=== PATIENT | male | born 1945 | race Caucasian/White ===

== ENCOUNTER → 2017-09-29 | Outpatient (REF) | payer MEDICARE, BC ==
[2017-05-06 08:50] VITALS: BMI 38.5
[~2017-09-29] MED LIST: ALB17R INH; ALE70 PO; ALP5 PO; ALPR-429 PO; ALPR-445 PO; ALPR-448 PO; AMLO-98 PO; ASCO-191 PO; ASCO-480 PO; ASPI-715 PO; ASPI81TA94 PO; Amoxicillin/Clavulanate K PO; CALC-635 PO; CHOL100059 PO; CYCL10TA29 PO; DISU250T5 PO; ERG400 PO; FISH1CAP15 PO; FLAX100027 PO; FLAX100053 PO; FLU15T TOP; FLUT16SP20 NS; GARL10005 PO; GLUC-198 PO; GLUC750C3 PO; IBAN150T6 PO; LEVO50TA86 PO; LIS10 PO; LISI-374 PO; LORA-629 PO; LORA10TA2 PO; LOSA50TA72 PO; LOTEMAX; MAGN200T6 PO; METO-259 PO; METO50TA19 PO; MORP-181 PO; NIAC500C17 PO; Naproxen PO; OMEG500C7 PO; OMEP-137 PO; OXYC-865 PO; OXYC20TA99 PO; OXYC5TAB38 PO; Oxycodone Hcl PO; PRED20TA6 PO; RANI-324 PO; SPIR25TA78 PO; VIT-7 PO; VITA150T2 PO
[2017-09-29 16:19] LABS: PLATELET COUNT, AUTOMATED 248 K/uL (150-450)
== END ==
PROVIDERS: ATTEND Physician Assistant
DX: R60.0 Localized edema (principal); M79.606 Pain in leg, unspecified
CPT/HCPCS: 82040; 82247; 82310; 82374; 82435; 82565; 82947; 84075; 84132; 84155; 84295; 84450; 84460; 84520; 85025; 85379

== ENCOUNTER → 2017-09-30 | Outpatient (CLI) | payer MEDICARE, BC ==
[2017-05-06 08:50] VITALS: BMI 38.5
--- NOTE | 2017-09-30 14:11 | RADIOLOGY IMAGING REPORT ---
FACILITY: [facility] - [place], [place] PATIENT NAME: Bogdan Oconnell : 1945 MR: [id number] V: [id number] EXAM DATE: ORDERING PHYSICIAN: STANLEY MCGREGOR TECHNOLOGIST: Location: [facility] Patient: Bogdan Oconnell : 1945 Visit/Account:[id number] Date of Sevice: 09/30/2017 EXAMINATION: VENOUS DOPP LOW RIGHT EXTREMIT COMPARISON: None Available HISTORY: Right lower extremity edema. FINDINGS: Standard right lower extremity Doppler ultrasound with color flow and spectral analysis is performed. The common femoral, femoral, and popliteal veins are widely patent and compress appropriately. The v isualized calf veins and the proximal greater saphenous vein are patent. No popliteal fluid collection. IMPRESSION: No right lower extremity deep venous thrombosis. Report Dictated By: Jordy Shook MD at 09/30/2017 2:04 PM Report E-Signed By: oJrdy Shook MD at 09/30/2017 2:07 PM WSN:[id number]
== END ==
LOC: US 11:23
PROVIDERS: ATTEND Physician Assistant
DX: R60.0 Localized edema (principal); R79.1 Abnormal coagulation profile

== ENCOUNTER → 2018-02-14 | Outpatient (CLI) | payer MEDICARE, BC ==
[2017-05-06 08:50] VITALS: BMI 38.5
[~2018-02-14] MED LIST changes: -RANI-324 PO; +RANI-366 PO
--- NOTE | 2018-02-14 17:20 | RADIOLOGY IMAGING REPORT ---
FACILITY: [facility] PATIENT NAME: Bogdan Oconnell : 1945 MR: [id number] V: [id number] EXAM DATE: ORDERING PHYSICIAN: HARSHAD CABA TECHNOLOGIST: Location: [facility] Patient: Bogdan Oconnell : 1945 Visit/Account:[id number] Date of Sevice: 02/14/2018 2 VIEWS CHEST INDICATION: Hypoxia. Edema. COMPARISON: 09/26/2015. FINDINGS: Cardiac silhouette is mildly enlarged. Central pulmonary vessels are prominent and hazy. Mediastinal silhouette is within normal limits. Mild increased interstitial opacities seen diffusely in the lungs without focal area of consolidation . Mild scarring seen in both lower lobes. There is no pneumothorax or pleural effusion. No nodule. Upper abdomen is unremarkable. No acute bony abnormality. IMPRESSION: 1. Mildly enlarged cardiac silhouette with mild edema. No focal infiltrate. Report Dictated By: Surjit Green at 02/14/2018 5:14 PM Report E-Signed By: Surjit Green at 02/14/2018 5:17 PM WSN:[id number]
--- NOTE | 2018-02-14 19:38 | RADIOLOGY IMAGING REPORT ---
FACILITY: [facility] [place] PATIENT NAME: Bogdan Oconnell : 1945 MR: [id number] V: [id number] EXAM DATE: ORDERING PHYSICIAN: HARSHAD CABA TECHNOLOGIST: Location: [facility] Patient: Bogdan Oconnell : 1945 Visit/Account:[id number] Date of Sevice: 02/14/2018 EXAMINATION: Bilateral lower extremity arterial duplex ultrasound HISTORY: Leg edema. Hypoxemia. Smoking history. COMPARISON: None. FINDINGS: Ultrasound evaluation of the bilateral lower extremity arteries was performed with grayscale imaging and color and Doppler spectral analysis. Right leg: The visualized right leg arteries are patent with normal velocities and triphasic waveforms throughou t the interrogated segments. No significant atherosclerotic plaque is visible on grayscale imaging. Peak systolic velocities (cm/s): Common femoral artery: 113 Profunda femoral artery: 119 Proximal SFA: 118 Mid SFA: 101 Distal SFA: 64 Proximal popliteal: 79 Distal popliteal: 80 Peroneal: 31 Proximal posterior tibial: 88 Mid posterior tibial: 64 Distal posterior tibial: 63 Anterior tibial: 65 Dorsalis pedis: 76 Left leg: The visualized left leg arteries are patent with normal velocities and triphasic waveforms throughout the interrogated segments. No significant atherosclerotic plaque is visible on grayscale imaging. Peak systolic velocities (cm/s): Common femoral artery: 92 Profunda femoral artery: 60 Proximal SFA: 77 Mid SFA: 98 Distal SFA: 82 Proximal popliteal: 53 Distal popliteal: 59 Peroneal: 38 Proximal posterior tibial: 29 Mid posterior tibial: 67 Distal posterior tibial: 62 Anterior tibial: 73 Dorsalis pedis: 49 IMPRESSION: Unremarkable bilateral lower extremity arterial ultrasound. No ultrasound evidence of si gnificant atherosclerotic disease. Visualized arterial segments are patent without evidence of occlus deanna disease or focal stenosis. Report Dictated By: London Donovan MD at 02/14/2018 7:29 PM Report E-Signed By: London Donovan MD at 02/14/2018 7:36 PM WSN:[id number]
== END ==
LOC: US 04:07
PROVIDERS: ATTEND Family Medicine
DX: I51.7 Cardiomegaly (principal); I31.3 Pericardial effusion (noninflammatory); I34.0 Nonrheumatic mitral (valve) insufficiency; I37.1 Nonrheumatic pulmonary valve insufficiency
CPT/HCPCS: 71046; 93306; 93925

== ENCOUNTER → 2018-06-20 | Outpatient (CLI) | payer MEDICARE, BC ==
[2017-05-06 08:50] VITALS: BMI 38.5
[~2018-06-20] MED LIST changes: -LOSA50TA72 PO; +LOSA50TA74 PO; +SPIR25TA80 PO
== END ==
LOC: RESP 20:05
PROVIDERS: ATTEND Family Medicine
DX: G47.33 Obstructive sleep apnea (adult) (pediatric) (principal); G47.61 Periodic limb movement disorder; G47.36 Sleep related hypoventilation in conditions classified elsewhere

== ENCOUNTER → 2018-07-18 | Outpatient (CLI) | payer MEDICARE, BC ==
[2017-05-06 08:50] VITALS: BMI 38.5
[~2018-07-18] MED LIST changes: -LOSA50TA74 PO; +LOSA50TA80 PO
== END ==
LOC: RESP 19:46
PROVIDERS: ATTEND Family Medicine
DX: G47.33 Obstructive sleep apnea (adult) (pediatric) (principal); G47.61 Periodic limb movement disorder; G47.36 Sleep related hypoventilation in conditions classified elsewhere

== ENCOUNTER → 2018-08-01 | Outpatient (REF) | payer MEDICARE, BC ==
[2017-05-06 08:50] VITALS: BMI 38.5
== END ==
LOC: ZZSENDIN 19:28
PROVIDERS: ATTEND Physician Assistant
DX: L03.116 Cellulitis of left lower limb (principal)
CPT/HCPCS: 87071

== ENCOUNTER → 2018-08-04 | Outpatient (CLI) | payer MEDICARE, BC ==
[2017-05-06 08:50] VITALS: BMI 38.5
--- NOTE | 2018-08-04 14:28 | RADIOLOGY IMAGING REPORT ---
FACILITY: [facility] [place] PATIENT NAME: Bogdan Oconnell : 1945 MR: [id number] V: [id number] EXAM DATE: ORDERING PHYSICIAN: KENDALL LUCAS TECHNOLOGIST: Location: [facility] [place] Patient: Bogdan Oconnell : 1945 Visit/Account:[id number] Date of Sevice: 08/04/2018 ABDOMEN PELVIS ESWL CYSTO W/O HISTORY: Kidney stones TECHNIQUE: Axial images acquired through the abdomen/pelvis. Coronal and sagittal reformatting also performed. No IV contrast administered.Dose Lowering Technique One of the following dose optimization techniques was utilized in the performance of this exam: Autom ated exposure control; adjustment of the mA and/or kV according to the patient's size; or use of an i terative reconstruction technique. Specific details can be referenced in the facility's radiology C T exam operational policy. COMPARISON: May 05, 2017 FINDINGS: Visualized lung bases: Linear scarring in the lung bases. Calcified granuloma in the right middle l obe . Coronary artery calcifications Hepatobiliary: Negative. Spleen: Negative. Adrenals: Negative. Pancreas: Negative. Kidneys ureters and bladder: There is a 5 mm calculus lower pole calyx of the right kidney. There is a 1 mm nonobstructing calculus upper pole the left kidney and two 1 to 2 mm nonobstructing calculi l ower pole the left kidney no evidence of hydronephrosis or hydroureter Genitalia: Negative. GI: Negative. Vessels/spaces/nodes: Atherosclerotic calcifications in the abdominal aorta and branch vessels Bones/soft tissues: There Is a periumbilical hernia containing fat and an additional small ventral he rnia just above the umbilicus in the midline containing fat. There are extensive spondylotic changes of the lumbar spine Additional findings: None pertinent. IMPRESSION: Nonobstructing calculi in both renal collecting systems without evidence of hydronephrosis or hydrour eter Small periumbilical hernia containing fat and an additional small ventral hernia just above the umbil icus in the midline also containing fat Report Dictated By: Ivory Keller MD at 08/04/2018 2:17 PM Report E-Signed By: Ivory Keller MD at 08/04/2018 2:24 PM WSN:[email or web address]
== END ==
LOC: CT 02:13
PROVIDERS: ATTEND Urology
DX: N20.0 Calculus of kidney (principal); K42.9 Umbilical hernia without obstruction or gangrene
CPT/HCPCS: 74176

== ENCOUNTER → 2018-09-15 | Outpatient (REF) | payer MEDICARE, BC ==
[2017-05-06 08:50] VITALS: BMI 38.5
[~2018-09-15] MED LIST changes: +AMOX1TAB9; +LEVO75TA73 PO
== END ==
LOC: ZZSENDIN 14:14
PROVIDERS: ATTEND Family Medicine
DX: L97.909 Non-pressure chronic ulcer of unspecified part of unspecified lower leg with unspecified severity (principal)
CPT/HCPCS: 87070

== ENCOUNTER 2018-09-17 16:14 | Inpatient (IN) | payer MEDICARE, BC ==
[2017-05-06 08:50] VITALS: Ht 167.6 cm; Wt 115.7 kg
[~2018-09-17] VITALS: Ht 167.6 cm; Wt 115.7 kg
[~2018-09-17 16:14] MED LIST changes: -AMOX1TAB9; -LEVO75TA73 PO
[2018-09-17] MEDS ORDERED: AMOX1TAB9 (16:25)
[2018-09-17] MEDS ORDERED: TIGECYCLINE 50 MG INJS 50 MG in NS(*) 0.9% 100 ML BAG 100 ML IVPB ONE (16:35)
--- NOTE | 2018-09-17 16:53 | ER Report ---
History and Physical Time Seen By MD: 16:30 Hx. of Stated Complaint: pt reports L lower leg wound since May. pt sent from [facility] for wound check HPI/ROS CHIEF COMPLAINT: Wound left leg HISTORY OF PRESENT ILLNESS: 72-year-old male comes emergency Department today sent here from outpatient wound care facility for evaluation of a wound to the left lateral aspect of his left leg lower extremity patient status got worse over the last 45 days been seen for the last 2 weeks been put on Augmentin for the last week with little to no benefit in fact he's noticed it's getting significantly worse. Patient states Pain just with sitting and then the redness and the warmth and erythema has increased significantly sent here for emergent evaluation patient denies any history of diabetes. REVIEW OF SYSTEMS: Respiratory: No cough, no dyspnea. Cardiovascular: No chest pain, no palpitations. Gastrointestinal: No vomiting, no abdominal pain. Musculoskeletal: No back pain. Remainder of the 14 system rev: Yes Allergies: Coded Allergies: Sulfa (Sulfonamide Antibiotics) (Verified Allergy, Unknown, 09/17/18) Home Meds Active Scripts Morphine Sulfate (MS CONTIN) 15 Mg Tablet.er, 15 MG PO BID for 10 Days, #20 TAB Prov:BENIGNO ARRIETA MD 05/07/17 Cyclobenzaprine Hcl (CYCLOBENZAPRINE HCL) 10 Mg Tablet, 10 MG PO TID for 10 Days, #30 TAB 0 Refills Prov:BENIGNO ARRIETA MD 05/07/17 Oxycodone Hcl/Acetaminophen (PERCOCET 5-325 MG TABLET) 1 Each Tablet, 1-2 EACH PO Q4-6H PRN for PAIN, #40 TAB Prov:BENIGNO ARRIETA MD 05/07/17 Spironolactone (SPIRONOLACTONE) 25 Mg Tablet, 1 TAB PO QDAY, #90 TAB 4 Refills Prov:MYNOR MARQUEZ MD 11/23/14 Losartan Potassium (LOSARTAN POTASSIUM) 50 Mg Tablet, 1 TAB PO QDAY, #90 TAB 3 Refills Prov:MYNOR MARQUEZ MD 06/08/14 Reported Medications Amoxicillin/Potassium Clav (AMOX TR-K CLV 875-125 MG TAB) 1 Each Tablet, BID 09/17/18 Disulfiram (DISULFIRAM) 250 Mg Tablet, 250 MG PO DAILY, #14 05/07/17 Levothyroxine Sodium (LEVOTHYROXINE SODIUM) 50 Mcg Tablet, 40 MCG PO QDAY, TAB 05/05/17 Metoprolol Succinate (METOPROLOL SUCCINATE) 50 Mg Tab.er.24h, 1 TAB PO QDAY, TAB 10/14/15 Alprazolam (XANAX) 0.5 Mg Tablet, 1 TAB PO DAILY, TAB TAKE IN THE MORNING 09/26/15 Vit A,C & E/Lutein/Minerals (OCUVITE TABLET) 1 Each Tablet, 1 TAB PO QDAY 08/18/14 Magnesium (MAGNESIUM) 200 Mg Tablet, 1 TAB PO QDAY 08/18/14 Fish Oil/Dha/Epa (FISH OIL 1,200 MG FISH OIL) 1 Each Capsule, 1 CAP PO QDAY, CAPSULE 08/18/14 Flaxseed Oil (FLAX OIL) 1,000 Mg Capsule, 2 CAP PO QDAY, CAPSULE 08/18/14 Garlic (GARLIC) 1,000 Mg Capsule, 1 CAP PO QDAY, CAPSULE 08/18/14 Glucosa Sykes 2KCL/Chondroitin Sykes (GLUCOSAMINE & CHONDROITIN CAP) 1 Each Capsule, 1 CAP PO BID, CAPSULE 08/18/14 Niacin (Inositol Niacinate) (NIACIN 500 MG CAPSULE) 500 Mg Capsule, 1 CAP PO QDAY, CAPSULE 08/18/14 Vitamin B Complex & Vit C No.4 (SUPER B COMPLEX) 150 Mg Tablet, 1 TAB PO QDAY 08/18/14 Loratadine (LORATADINE) 10 Mg Tablet, 10 MG PO DAILY PRN for ALLERGY SYMPTOMS 05/03/14 Omeprazole (OMEPRAZOLE) 20 Mg Tablet.dr, 20 MG PO QDAY TAKE ONE TABLET BY MOUTH ONCE A DAY 05/03/14 Aspirin (ASPIRIN) 81 Mg Tab.chew, 81 MG PO QDAY, TAB.CHEW TAKE 1 TABLET BY MOUTH EVERY DAY 05/03/14 Calcium Carbonate/Vitamin D3 (CALCIUM 600 + VIT D3 TABLET) 1 Each Tablet, 2 TAB PO DAILY 05/03/14 Cholecalciferol (Vitamin D3) (VITAMIN D3) 1,000 Unit Capsule, 1000 UNIT PO, CAPSULE 05/03/14 Reviewed Nurses Notes: Yes Old Medical Records Reviewed: Yes Hx Smoking: Yes (SMOKED 1/2 TO 2/3 PPD FOR 40 YEARS) Smoking Status: Former Smoker Exposure to Second Hand Smoke?: No Hx Substance Use Disorder: No Hx Alcohol Use: Yes Constitutional Vital Sign - Last 24 Hours 09/17/18 16:20 Temp 98.7 Pulse 100 Resp 18 B/P (MAP) 145/80 Pulse Ox 90 O2 Delivery Room Air Physical Exam General Appearance: The patient is alert, has no immediate need for airway protection and no current signs of toxicity. [ ] Eyes: Pupils equal and round no injection. Respiratory: Chest is non tender, lungs are clear to auscultation. Cardiac: regular rate and rhythm [ ] Gastrointestinal: Abdomen is soft and non tender, no masses, bowel sounds normal. Musculoskeletal: Neck: Neck is supple and non tender. Extremities have full range of motion and are non tender other than stated above Skin: A 3 x 4 cm open wound with serosanguineous drainage with a well demarcated warm erythematous area around it was some mild to moderate cellulitic changes neurovascularly intact tender to touch and palpation of the left lateral aspect of the left lower extremity [ ] DIFFERENTIAL DIAGNOSIS: After history and physical exam differential diagnosis was considered for cellulitis open wound Medical Decision Making Data Points Result Diagram: 09/17/18 1642 09/17/18 1642 Laboratory Hematology Test 09/17/18 16:42 Red Blood Count 4.76 M/uL (4.00-5.60) Mean Corpuscular Volume 89.1 fL (80.0-96.0) Mean Corpuscular Hemoglobin 29.8 pg (26.0-33.0) Mean Corpuscular Hemoglobin Concent 33.5 g/dL (32.0-36.0) Red Cell Distribution Width 17.1 % (11.5-14.5) Mean Platelet Volume 7.2 fL (7.2-11.1) Neutrophils (%) (Auto) 59.6 % (39.4-72.5) Lymphocytes (%) (Auto) 25.8 % (17.6-49.6) Monocytes (%) (Auto) 12.8 % (4.1-12.4) Eosinophils (%) (Auto) 1.1 % (0.4-6.7) Basophils (%) (Auto) 0.7 % (0.3-1.4) Nucleated RBC Relative Count (auto) 0.0 /100WBC Neutrophils # (Auto) 6.9 K/uL (2.0-7.4) Lymphocytes # (Auto) 3.0 K/uL (1.3-3.6) Monocytes # (Auto) 1.5 K/uL (0.3-1.0) Eosinophils # (Auto) 0.1 K/uL (0.0-0.5) Basophils # (Auto) 0.1 K/uL (0.0-0.1) Nucleated RBC Absolute Count (auto) 0.00 K/uL Sodium Level 133 mmol/L (137-145) Potassium Level 4.8 mmol/L (3.5-5.0) Chloride Level 100 mmol/L (98-107) Carbon Dioxide Level 25 mmol/L (22-30) Blood Urea Nitrogen 18 mg/dl (9-21) Creatinine 0.60 mg/dl (0.66-1.25) Glomerular Filtration Rate Calc > 60.0 Random Glucose 104 mg/dl (75-110) Lactate 1.5 mmol/L (0.7-2.1) Calcium Level 9.6 mg/dl (8.4-10.2) Total Bilirubin 0.4 mg/dl (0.2-1.3) Aspartate Amino Transf (AST/SGOT) 22 U/L (0-35) Alanine Aminotransferase (ALT/SGPT) 29 U/L (0-56) Alkaline Phosphatase 61 U/L (0-126) Total Protein 6.9 g/dl (6.3-8.2) Albumin 4.1 g/dl (3.5-5.0) Chemistry Test 09/17/18 16:42 White Blood Count 11.6 k/uL (4.5-11.0) Red Blood Count 4.76 M/uL (4.00-5.60) Hemoglobin 14.2 g/dL (14.0-18.0) Hematocrit 42.4 % (42.0-52.0) Mean Corpuscular Volume 89.1 fL (80.0-96.0) Mean Corpuscular Hemoglobin 29.8 pg (26.0-33.0) Mean Corpuscular Hemoglobin Concent 33.5 g/dL (32.0-36.0) Red Cell Distribution Width 17.1 % (11.5-14.5) Platelet Count 291 K/uL (150-450) Mean Platelet Volume 7.2 fL (7.2-11.1) Neutrophils (%) (Auto) 59.6 % (39.4-72.5) Lymphocytes (%) (Auto) 25.8 % (17.6-49.6) Monocytes (%) (Auto) 12.8 % (4.1-12.4) Eosinophils (%) (Auto) 1.1 % (0.4-6.7) Basophils (%) (Auto) 0.7 % (0.3-1.4) Nucleated RBC Relative Count (auto) 0.0 /100WBC Neutrophils # (Auto) 6.9 K/uL (2.0-7.4) Lymphocytes # (Auto) 3.0 K/uL (1.3-3.6) Monocytes # (Auto) 1.5 K/uL (0.3-1.0) Eosinophils # (Auto) 0.1 K/uL (0.0-0.5) Basophils # (Auto) 0.1 K/uL (0.0-0.1) Nucleated RBC Absolute Count (auto) 0.00 K/uL Glomerular Filtration Rate Calc > 60.0 Lactate 1.5 mmol/L (0.7-2.1) Calcium Level 9.6 mg/dl (8.4-10.2) Total Bilirubin 0.4 mg/dl (0.2-1.3) Aspartate Amino Transf (AST/SGOT) 22 U/L (0-35) Alanine Aminotransferase (ALT/SGPT) 29 U/L (0-56) Alkaline Phosphatase 61 U/L (0-126) Total Protein 6.9 g/dl (6.3-8.2) Albumin 4.1 g/dl (3.5-5.0) ED Course/Re-evaluation ED Course ED clinical course 72-year-old male comes in for wound check left lower extremity a large open wound that is failed outpatient management started him on Tygacil and cultures have been sent blood counts an elevated white count patient be admitted with wound care and consult Decision to Disposition Date: Sep 17, 2018 Decision to Disposition Time: 17:18 Depart Departure Latest Vital Signs Vital Signs Date Time Temp Pulse Resp B/P (MAP) Pulse Ox O2 Delivery O2 Flow Rate FiO2 09/17/18 16:20 98.7 100 18 145/80 90 Room Air Impression: Primary Impression: Open wound Condition: Improved Disposition: Admitted from ER Referrals: HARSHAD CABA DO (PCP) TREV COLEY MD Sep 17, 2018 16:53
[2018-09-17 17:05] LABS: PLATELET COUNT, AUTOMATED 291 K/uL (150-450)
[2018-09-17 18:18] VITALS: BP 125/106
[2018-09-17] MEDS ORDERED: FLUSH 10 ML SYR IVP PRN (18:55)
[2018-09-17] MEDS ORDERED: ALPRAZolam 0.25 MG TAB PO PRN ×2 (19:05→19:35)
--- NOTE | 2018-09-17 19:09 | RADIOLOGY IMAGING REPORT ---
FACILITY: [facility] PATIENT NAME: Bogdan Oconnell : 1945 MR: [id number] V: [id number] EXAM DATE: ORDERING PHYSICIAN: TREV COLEY TECHNOLOGIST: Location: [facility] Patient: Bogdan Oconnell : 1945 Visit/Account:[id number] Date of Sevice: 09/17/2018 EXAMINATION: ANKLE 2 VIEW LEFT HISTORY: osteo. Ankle oozing for 2 months. COMPARISON: None. FINDINGS: 2 views of the left ankle are obtained. Bones: The cortical margins of the bones are intact. Bone mineralization is within normal limits. Sm all plantar calcaneal enthesophyte. Joint spaces: Osteophytes in the midfoot. Hardware: None. Alignment: Normal. Soft tissues: Soft tissue swelling about the ankle. IMPRESSION: There is soft tissue swelling about the left ankle. No evidence of osteomyelitis. Report Dictated By: Yony Carballo MD at 09/17/2018 7:02 PM Report E-Signed By: Yony Carballo MD at 09/17/2018 7:05 PM WSN:[id number]
[2018-09-17] MEDS ORDERED: INSULIN HUM LISPRO 100 UN/ML 3 ML VIAL SUBQ PRN (19:10)
[2018-09-17] MEDS ORDERED: NS(*) 0.9% 250 ML BAG 250 ML ONE (19:25)
--- NOTE | 2018-09-17 19:28 | History & Physical ---
History of Present Illness Chief Complaint "Sore leg" History of Present Illness 72yo male with PMHx significant for type 2 DM, alcoholism, PRAVEEN. He reports a chronic wound on lateral aspect of left lower leg for the past 2-3 months. He has been following as an outpatient for wound care. He was recently started on oral Augmentin for a suspected cellulitis with the wound. He denies any current fevers or chills. He has noted some slowly increasing erythema in the area. He has also had some thin, reddish/clear drainage. He was referred to the [facility] ER for further evaluation. He was found to have an elevated WBC count. Final x-ray report is still pending at this time. He was recommended for admission. History Problems: (1) Bacterial pneumonia, unspecified Status: Resolved (2) Nontraumatic rupture of bicep tendon Status: Resolved (3) Osteopenia Status: Chronic (4) Edema Status: Chronic (5) Venous stasis dermatitis Status: Chronic (6) Chronic wound of extremity Status: Chronic (7) History of colon polyps Status: Chronic (8) Closed left humeral fracture Status: Resolved (9) COPD (chronic obstructive pulmonary disease) Status: Chronic (10) Alcohol abuse Status: Chronic (11) Essential hypertension Status: Chronic (12) Obstructive sleep apnea Status: Chronic (13) Hyperlipidemia Status: Chronic (14) Hypothyroidism Status: Chronic Home Meds Active Scripts Morphine Sulfate (MS CONTIN) 15 Mg Tablet.er, 15 MG PO BID for 10 Days, #20 TAB Prov:BENIGNO ARRIETA MD 05/07/17 Cyclobenzaprine Hcl (CYCLOBENZAPRINE HCL) 10 Mg Tablet, 10 MG PO TID for 10 Days, #30 TAB 0 Refills Prov:BENIGNO ARRIETA MD 05/07/17 Oxycodone Hcl/Acetaminophen (PERCOCET 5-325 MG TABLET) 1 Each Tablet, 1-2 EACH PO Q4-6H PRN for PAIN, #40 TAB Prov:BENIGNO ARRIETA MD 05/07/17 Spironolactone (SPIRONOLACTONE) 25 Mg Tablet, 1 TAB PO QDAY, #90 TAB 4 Refills Prov:MYNOR MARQUEZ MD 11/23/14 Losartan Potassium (LOSARTAN POTASSIUM) 50 Mg Tablet, 1 TAB PO QDAY, #90 TAB 3 Refills Prov:MYNOR MARQUEZ MD 06/08/14 Reported Medications Amoxicillin/Potassium Clav (AMOX TR-K CLV 875-125 MG TAB) 1 Each Tablet, BID 09/17/18 Disulfiram (DISULFIRAM) 250 Mg Tablet, 250 MG PO DAILY, #14 05/07/17 Levothyroxine Sodium (LEVOTHYROXINE SODIUM) 50 Mcg Tablet, 40 MCG PO QDAY, TAB 05/05/17 Metoprolol Succinate (METOPROLOL SUCCINATE) 50 Mg Tab.er.24h, 1 TAB PO QDAY, TAB 10/14/15 Alprazolam (XANAX) 0.5 Mg Tablet, 1 TAB PO DAILY, TAB TAKE IN THE MORNING 09/26/15 Vit A,C & E/Lutein/Minerals (OCUVITE TABLET) 1 Each Tablet, 1 TAB PO QDAY 08/18/14 Magnesium (MAGNESIUM) 200 Mg Tablet, 1 TAB PO QDAY 08/18/14 Fish Oil/Dha/Epa (FISH OIL 1,200 MG FISH OIL) 1 Each Capsule, 1 CAP PO QDAY, CAPSULE 08/18/14 Flaxseed Oil (FLAX OIL) 1,000 Mg Capsule, 2 CAP PO QDAY, CAPSULE 08/18/14 Garlic (GARLIC) 1,000 Mg Capsule, 1 CAP PO QDAY, CAPSULE 08/18/14 Glucosa Sykes 2KCL/Chondroitin Sykes (GLUCOSAMINE & CHONDROITIN CAP) 1 Each Capsule, 1 CAP PO BID, CAPSULE 08/18/14 Niacin (Inositol Niacinate) (NIACIN 500 MG CAPSULE) 500 Mg Capsule, 1 CAP PO QDAY, CAPSULE 08/18/14 Vitamin B Complex & Vit C No.4 (SUPER B COMPLEX) 150 Mg Tablet, 1 TAB PO QDAY 08/18/14 Loratadine (LORATADINE) 10 Mg Tablet, 10 MG PO DAILY PRN for ALLERGY SYMPTOMS 05/03/14 Omeprazole (OMEPRAZOLE) 20 Mg Tablet.dr, 20 MG PO QDAY TAKE ONE TABLET BY MOUTH ONCE A DAY 05/03/14 Aspirin (ASPIRIN) 81 Mg Tab.chew, 81 MG PO QDAY, TAB.CHEW TAKE 1 TABLET BY MOUTH EVERY DAY 05/03/14 Calcium Carbonate/Vitamin D3 (CALCIUM 600 + VIT D3 TABLET) 1 Each Tablet, 2 TAB PO DAILY 05/03/14 Cholecalciferol (Vitamin D3) (VITAMIN D3) 1,000 Unit Capsule, 1000 UNIT PO, CAPSULE 05/03/14 Allergies: Coded Allergies: Sulfa (Sulfonamide Antibiotics) (Verified Allergy, Unknown, 09/17/18) Patient History: FH: COPD (chronic obstructive pulmonary disease) MOTHER, , Age:68 FH: alcoholism FATHER, , Age:83 BROTHER OR SISTER (Brother), Age:68 Paternalgrandfather, , Age:58 FH: asthma MOTHER, , Age:68 FH: coronary artery disease FATHER, , Age:83 MOTHER, , Age:68 FH: obesity Paternal Gramdmother, , Age:75 FH: stomach cancer Maternal Grandmother, , Age:93 Hx Smoking: Yes (SMOKED 1/2 TO 2/3 PPD FOR 40 YEARS) Smoking Status: Former Smoker Exposure to Second Hand Smoke?: No Caffeine Intake: Coffee Caffeine/Cups Per Day: 2 1/2 CUPS COFFEE PER DAY. Hx Alcohol Use: Yes Alcohol Use: Currently Hx Substance Use Disorder: No Social Drug Use: Never Social Drugs: Marijuana Amount Of Social Drug/s Used: TRIED IT A COUPLE TIMES IN COLLEGE Review of Systems Constitutional: No Fever, No Chills, No Night Sweats Neurological: Weakness Eyes: No Vision Change, No Loss of Vision ENT: Hearing Loss Cardiovascular: No Chest Pain, No Palpitations Respiratory: No Shortness of Breath, No Cough Gastrointestinal: No Nausea, No Vomiting, No Diarrhea, No Hematemesis, No Hematochezia, No Melena, No Abdominal Pain Genitourinary: No Dysuria, No Hematuria Musculoskeletal: Pain, Impaired Mobility Exam Vital Signs Vital Signs Date Time Temp Pulse Resp B/P (MAP) Pulse Ox O2 Delivery O2 Flow Rate FiO2 09/17/18 18:18 99.2 98 20 125/106 (112) 89 Room Air General Appearance: Alert, Awake Neuro: No Gross deficits Eyes: PERRLA ENT: Oropharynx Clear, Other (dentures) Neck: Other (short/thick/difficult to assess for JVD) Cardiovascular: Regular Rate and Rhythm Respiratory: Clear to Auscultation GI: Abd Soft and Non-Tender (obese/BS present) : No CVA Tenderness Extremities: Warm, Perfused Integumentary: Other (large open area just proximal to left lateral malleolus/dark tissue at the base with some darkening of kenzie tissue at margins as well/mild surrounding erythema/minimal serous drainage) Psych: Alert & Oriented X3 Medical Decision Making Data Points Result Diagram: 09/17/18 1642 09/17/18 1642 Item Value Date Time Albumin 4.1 g/dl 09/17/18 1642 Total Protein 6.9 g/dl 09/17/18 1642 Alkaline Phosphatase 61 U/L 09/17/18 1642 Alanine Aminotransferase (ALT/SGPT) 29 U/L 09/17/18 1642 Aspartate Amino Transf (AST/SGOT) 22 U/L 09/17/18 1642 Total Bilirubin 0.4 mg/dl 09/17/18 1642 Calcium Level 9.6 mg/dl 09/17/18 1642 Assessment and Plan Problems: (1) Cellulitis Status: Acute Assessment & Plan: It appears he has some associated cellulitis with his left lower extremity wound/ulcer. Will admit for IV antibiotics (Primaxin and vancomycin) and wound care. It does appear he has some necrotic tissue and may need some debridement. May need to have surgery see as well. (2) Open wound Status: Chronic Assessment & Plan: Will have wound care see. May need general surgery to see as well. (3) Hypothyroidism Status: Chronic Assessment & Plan: Continue replacement therapy. Check TSH to see if appropriately replaced. (4) Obstructive sleep apnea Status: Chronic Assessment & Plan: Will check his recent sleep study and continue therapy. (5) Essential hypertension Status: Chronic Assessment & Plan: Continue metoprolol, losartan, spironolactone. Watch BPs and modify regimen as needed. (6) Alcohol abuse Status: Chronic Assessment & Plan: He continues to drink "some". Will watch with CIWA protocol. Treat as needed. Place on thiamine. Copies to: HARSHAD CABA DO ; Venous Thromboembolism Antithrombotics Is Pt On Any Antithrombotics?: Yes Exam Sepsis Risk: No Definite Risk JOSE BRUSH MD Sep 17, 2018 19:28
[2018-09-17] MEDS ORDERED: DIAZEPAM 10 MG TAB PO PRN ×2 (19:35)
[2018-09-17] MEDS: IMIPENEM/CILASTA(*) 500MG VIAL 500 MG in NS(*) 0.9% 100 ML BAG 100 ML IVPB SCH (19:38)
[2018-09-17] MEDS ORDERED: VANCOMYCIN(*) 1 GM VIAL 2 GM in NS(*) 0.9% 500 ML BAG 500 ML IVPB ONE (20:00)
[2018-09-17] MEDS: metFORMIN HCL XR 500 MG TABCR PO SCH (21:23)
[2018-09-18] MEDS: IMIPENEM/CILASTA(*) 500MG VIAL 500 MG in NS(*) 0.9% 100 ML BAG 100 ML IVPB SCH ×4 (01:56→18:38)
[2018-09-18 03:55] VITALS: BP 128/73
[2018-09-18 06:02] LABS: PLATELET COUNT, AUTOMATED 273 K/uL (150-450)
[2018-09-18] MEDS: LEVOTHYROXINE SOD 0.075 MG TAB PO SCH (06:09)
[2018-09-18 07:56] VITALS: BP 108/76
[2018-09-18] MEDS ORDERED: NS(*) 0.9% 250 ML BAG 250 ML ONE (08:26)
[2018-09-18] MEDS: VANCOMYCIN(*) 1 GM VIAL 1 GM, VANCOMYCIN HCL 0.750 GM VIAL 0.75 GM in NS(*) 0.9% 250 ML... IVPB SCH ×2 (08:33→20:24)
[2018-09-18] MEDS: THIAMINE HCL 100 MG TAB PO SCH (08:34)
[2018-09-18] MEDS: LOSARTAN POTASSIUM 50 MG TAB PO SCH (08:34)
[2018-09-18] MEDS: METOPROLOL SUCC XL 50 MG TABCR 50 MG TAB.ER.24H PO SCH (08:34)
[2018-09-18] MEDS: ASPIRIN 81 MG CHEW PO SCH (08:34)
[2018-09-18] MEDS: metFORMIN HCL XR 500 MG TABCR PO SCH ×2 (08:34→20:23)
[2018-09-18] MEDS: FOLIC ACID 1 MG TAB PO SCH (08:34)
[2018-09-18] MEDS: SPIRONOLACTONE 25 MG TAB PO SCH (08:34)
[2018-09-18] MEDS: FUROSEMIDE 20 MG TAB PO SCH (08:35)
[2018-09-18] MEDS: ENOXAPARIN 40 MG/0.4ML SYR SC SCH (08:35)
--- NOTE | 2018-09-18 09:58 | Medical Nutrition Therapy ---
Nutrition Anthropometrics Height (Inches): 66.00 Height (Calculated Centimeters: 167.496378 Weight (Pounds): 255 Weight (Calculated Kilograms): 115.666 BMI: 41.2 Romaine Nutrition Score: Excellent Romaine Nutrition Risk Score: 18 Dietary Referral Nutrition Risk Factors: Nutrition Risk Comment: wound since 04/01 Physical Findings Physical Appearance: Morbidly Obese 40+ Skin Appearance Skin Appearance: Edema Edema Location Modifier: Edema Location: Type of Edema: Degree of Edema: Gastrointestinal Symptoms GI Symtoms: Tube Present: Bowel Sounds: Recent Bowel Pattern: Stool Characteristics: Nutritional Diagnosis Nutritional Risk Acuity 2: Abcess/Non-Healing Wound Nutritional Risk Acuity 3: Alcohol abuse, Morbid Obesity Past Medical History: 05/06 Pt has hx of alcohol abuse, COPD, hyperlipidemia, PRAVEEN, HTN, and hypoxemia. Nutrition Diagnosis: Increased Nutrient Needs Nutrition Etiology: Physiological Causes Nutrition Problem/Etiology/Sym: Increased Nutrient Needs related to increased demand for nutrients secondary to wound healing and infection AEB low albumin status and high C-reactive protein indicating increased stress and increased metabolic needs. Adjusted Energy Requirement Re: 2140 ([place]- [place] adj for obestiy) Protein Requirement: 105 (1.5gm/kg IBW) Fluid Requirement: 2875 (25gm/kg) Diet Type: Diabetic Nutrition Intervention: Cont diet as ordered, Encourage intake Drug: Diuretics Nutrition Monitoring & Eval Nutrition Goals: Eat 75-100% Meal RD Patient Assessment Time: [address] Assessment Type: RD Assessment Patient Nutrition Acuity: 2-Moderate Follow Up Date: Sep 23, 2018 Nutritional Comment: 09/18 Pt admitted for cellulities with chronic wound. Pt has dx T2DM. Pt on both K+ sparing and depleting duiretic. K+ WNR at 4.5. Alb 3.6, CRP 5.5. BG 97-106. pt has hx of alcoholism. Pt on diabetic diet however no intake reported at this time. Will cont to monitor and encourage intake. MICHELLE GARCIA Sep 18, 2018 09:58
--- NOTE | 2018-09-18 10:39 | Hospitalist Progress Note ---
Subjective Progress Notes Subjective This patient was admitted for cellulitis of the left leg. He had no acute events overnight. Patient Complains of: Cardiovascular: No: Chest Pain Respiratory: No: Shortness of Breath Physical Exam Vital Signs Date Time Temp Pulse Resp B/P (MAP) Pulse Ox O2 Delivery O2 Flow Rate FiO2 09/18/18 07:56 96.7 76 18 108/76 (87) 94 Nasal Cannula 2.0 Intake and Output 09/18/18 07:00 Intake Total 210 ml Balance 210 ml IV Total 210 ml # Voids 6 Cardiovascular: Regular Rate and Rhythm Respiratory: Clear to Auscultation Integumentary: Other (Black eschar on left lower leg with minimal surrounding erythema.) Result Diagram: 09/18/1851009/18/18510 Assessment and Plan Problems: (1) Cellulitis Status: Acute Assessment & Plan: It appears he has some associated cellulitis with his left lower extremity wound/ulcer. He is currently on Primaxin and vancomycin. (2) Open wound Status: Chronic Assessment & Plan: A wound evaluation is pending. (3) Hypothyroidism Status: Chronic Assessment & Plan: He is on chronic treatment with Synthroid. A TSH is within normal limits. (4) Obstructive sleep apnea Status: Chronic Assessment & Plan: Will check his recent sleep study and continue therapy. (5) Essential hypertension Status: Chronic Assessment & Plan: He is on chronic treatment with metoprolol, losartan, spironolactone. (6) Alcohol abuse Status: Chronic Assessment & Plan: He is on CIWA protocol and thiamine replacement. Exam Sepsis Risk: No Definite Risk ALEX CHUNG DO Sep 18, 2018 10:39
[2018-09-18 11:30] VITALS: BP 110/66
[2018-09-18] MEDS: CALCIUM CARBONATE/VITAMIN D3 PO SCH ×2 (12:13→16:54)
--- NOTE | 2018-09-18 15:20 | NUR ---
Physical Therapy Impression PT wound eval completed with Girth measurements: R)ankle 27.5cm; R)calf 39cm; L)ankle 28.5cm; L)calf 38cm. RICO on R) 126/130= 0.97 which is within safe range for therapeutic compression to be applied for venous insufficiency. RICO on L) however was 175/128= 1.37 which indicates a need for further testing to include Toe/Brachial index and could also be a sign of vessel calcification in relation to DMII. In light of this, no compression will be applied to L) LE unless clear by vascular specialist. Non-excisional debridement completed with the use of tweezers to a depth of subcutaneous tissue in order to remove non-viable slough. Wound cleansed with sterile saline and hydrogel applied to soften dried wound base. This was then covered with silver calcium alginate to assist in autolytic debridement process and secured with silicone border 6x6 dressing. PT to inspect again on Saturday for further debridement. If pt is medically ready to discharge prior to that date, recommend follow up with out pt wound care at [facility] as before. Physical Therapy Goals Patient's Goals
[2018-09-18 16:12] VITALS: BP 113/55
[2018-09-18] MEDS ORDERED: LEVO75TA73 PO (17:24)
--- NOTE | 2018-09-18 17:25 | Pharmacy Note ---
Vancomycin Management Note Vanco Dosing Note Pharmacy Services Pharmacokinetic Dosing Consult, Vancomycin Pharmacy has been consulted for dosing and monitoring of vancomycin for PRIYA CARR 72YO M for A WOUND. Pertinent Past Medical History: DM TYPE 2, ALCOHOLISM Antibiotics prior to admission; AUGMENTIN PO 09/15/18, KEFLEX 07/2018 Additional Antimicrobials: VANCOMYCIN Start 09/17 TIGECYCLINE Start 09/17 X 1 DOSE IN ER PRIMAXIN Start 09/17 Patient Information: Height (cm): 167.64 Actual Body Weight (ABW): 115.67 KG Pertinent Lab Tests WHITE BLOOD COUNT 9.9 NEUTROPHILS * BLOOD UREA NITROGEN * SCR 0.6 VANCOMYCIN TROUGH ORDERED FOR 09/18 @1900 VANCOMYCIN RANDOM * Culture Results: BLOOD: PENDING URINE * SPUTUM * WOUND * Assessment: CrCl 125ML/MIN (CAPPED) Renal function is STABLE Vancomycin Monitoring Assessment Goal Vancomycin Trough Level: 15-20 Plan: 1) Vancomycin 25 mg/kg loading dose (based on ABW): 2000 mg IV x 1 09/17/18 AT 2000 2) Vancomycin maintenance dose (based on ABW): 1750MG Q12H STARTED 09/18/18 AT 0800 3) Vancomycin monitoring: VANCO TROUGH ORDERED FOR 09/18/18 @1900 BEFORE 2000 DOSE Pharmacy will continue to monitor daily and adjust regimen as appropriate. Thank you for the consult. DAVID MAZA Sep 18, 2018 17:25
[2018-09-18 19:00] VITALS: BP 122/74
[2018-09-18] MEDS: DOCUSATE SODIUM 100 MG CAP PO SCH (20:23)
[2018-09-18] MEDS: POLYETHYLENE GLYCOL 17 GM PKT PO SCH (20:23)
[2018-09-18 23:55] VITALS: BP 149/77
[2018-09-19] MEDS: IMIPENEM/CILASTA(*) 500MG VIAL 500 MG in NS(*) 0.9% 100 ML BAG 100 ML IVPB SCH ×4 (02:09→18:39)
[2018-09-19] MEDS: LEVOTHYROXINE SOD 0.075 MG TAB PO SCH (05:47)
[2018-09-19 06:46] VITALS: BP 152/86
[2018-09-19] MEDS: VANCOMYCIN(*) 1 GM VIAL 1 GM, VANCOMYCIN HCL 0.750 GM VIAL 0.75 GM in NS(*) 0.9% 250 ML... IVPB SCH ×3 (08:00→20:46)
[2018-09-19] MEDS: METOPROLOL SUCC XL 50 MG TABCR 50 MG TAB.ER.24H PO SCH (08:52)
[2018-09-19] MEDS: LOSARTAN POTASSIUM 50 MG TAB PO SCH (08:57)
[2018-09-19] MEDS: THIAMINE HCL 100 MG TAB PO SCH (08:58)
[2018-09-19] MEDS: ASPIRIN 81 MG CHEW PO SCH (08:58)
[2018-09-19] MEDS: DOCUSATE SODIUM 100 MG CAP PO SCH ×2 (08:58→20:09)
[2018-09-19] MEDS: FUROSEMIDE 20 MG TAB PO SCH (08:58)
[2018-09-19] MEDS: SPIRONOLACTONE 25 MG TAB PO SCH (08:58)
[2018-09-19] MEDS: FOLIC ACID 1 MG TAB PO SCH (08:58)
[2018-09-19] MEDS: POLYETHYLENE GLYCOL 17 GM PKT PO SCH (08:59)
[2018-09-19] MEDS: ENOXAPARIN 40 MG/0.4ML SYR SC SCH (09:00)
[2018-09-19] MEDS: metFORMIN HCL XR 500 MG TABCR PO SCH ×2 (09:12→20:09)
--- NOTE | 2018-09-19 11:25 | Hospitalist Progress Note ---
Subjective Progress Notes Subjective He was admitted with cellulitis. He reports some improvement in redness in this morning. Patient Complains of: Cardiovascular: No: Chest Pain Respiratory: No: Shortness of Breath Physical Exam Vital Signs Date Time Temp Pulse Resp B/P (MAP) Pulse Ox O2 Delivery O2 Flow Rate FiO2 09/19/18 07:30 89 Room Air 09/19/18 06:46 98.1 86 22 152/86 (108) 2.0 Intake and Output 09/19/18 07:00 Intake Total 1530 ml Balance 1530 ml Intake Oral 1200 ml IV Total 330 ml # Voids 13 General Appearance: Alert, Awake, No Acute Distress, Afebrile Neuro: No Gross deficits Cardiovascular: Regular Rate and Rhythm Respiratory: No Respiratory Distress, Clear to Auscultation Extremities: Warm, Pulses (3+left lower extremity), Perfused, Edema (2+pitting edema to left lower extremity) Psych: Alert & Oriented X3, Appropriate Mood & Affect Result Diagram: 09/18/1851009/18/18510 Assessment and Plan Problems: (1) Cellulitis Status: Acute Assessment & Plan: It appears he has some associated cellulitis with his left lower extremity wound/ulcer. He is currently on Primaxin and vancomycin. (2) Open wound Status: Chronic Assessment & Plan: A wound evaluation is pending. (3) Hypothyroidism Status: Chronic Assessment & Plan: He is on chronic treatment with Synthroid. A TSH is within normal limits. (4) Obstructive sleep apnea Status: Chronic Assessment & Plan: Will check his recent sleep study and continue therapy. (5) Essential hypertension Status: Chronic Assessment & Plan: He is on chronic treatment with metoprolol, losartan, spironolactone. (6) Alcohol abuse Status: Chronic Assessment & Plan: He is on CIWA protocol and thiamine replacement. Exam Sepsis Risk: No Definite Risk CLAUDIA ORNELAS Sep 19, 2018 11:25
[2018-09-19 11:33] VITALS: BP 123/77
[2018-09-19] MEDS: CALCIUM CARBONATE/VITAMIN D3 PO SCH ×2 (13:37→18:02)
--- NOTE | 2018-09-19 14:08 | Antimicrobial Stewardship ---
Antimicrobial Time Out Antimicrobial Stewardship MD Service: Hospitalist Indications: Cellulitis Antimicrobial Used PRIMAXIN 500MG Q6H IV, VANCO 1750MG IV Q12H Start Date: Sep 17, 2018 Culture Results: No (PENDING BLOOD) Eligible for PO Conversion Eligable for PO Conversion: No Reviewed with Provider Reviewed w/ Provider on Rounds: No Comments Comments Treatment for cellulitis of the leg. Blood cultures pending. WBC improved to 9.9 Narrow therapy based on any culture results DAVID MAZA Sep 19, 2018 14:08
[2018-09-19 14:52] VITALS: BP 123/75
[2018-09-19 19:24] VITALS: BP 134/80
[2018-09-19] MEDS ORDERED: NS(*) 0.9% 250 ML BAG 250 ML ONE (20:03)
[2018-09-19] MEDS: NS(*) 0.9% 250 ML BAG 250 ML in NS(*) 0.9% 250 ML BAG 250 ML IV PRN (20:08)
[2018-09-19 22:23] VITALS: BP 134/84
[2018-09-20] MEDS: IMIPENEM/CILASTA(*) 500MG VIAL 500 MG in NS(*) 0.9% 100 ML BAG 100 ML IVPB SCH ×4 (01:24→19:18)
[2018-09-20 01:29] VITALS: BP 127/70
[2018-09-20] MEDS: CYCLOBENZAPRINE HCL 10 MG TAB PO PRN ×2 (02:11→20:39)
[2018-09-20] MEDS: LEVOTHYROXINE SOD 0.075 MG TAB PO SCH (05:36)
[2018-09-20 07:35] VITALS: BP 121/85
[2018-09-20] MEDS: SPIRONOLACTONE 25 MG TAB PO SCH (08:22)
[2018-09-20] MEDS: METOPROLOL SUCC XL 50 MG TABCR 50 MG TAB.ER.24H PO SCH (08:22)
[2018-09-20] MEDS: LOSARTAN POTASSIUM 50 MG TAB PO SCH (08:22)
[2018-09-20] MEDS: ENOXAPARIN 40 MG/0.4ML SYR SC SCH (08:23)
[2018-09-20] MEDS: DOCUSATE SODIUM 100 MG CAP PO SCH ×2 (08:23→20:38)
[2018-09-20] MEDS: POLYETHYLENE GLYCOL 17 GM PKT PO SCH (08:23)
[2018-09-20] MEDS: FUROSEMIDE 20 MG TAB PO SCH (08:23)
[2018-09-20] MEDS: FOLIC ACID 1 MG TAB PO SCH (08:23)
[2018-09-20] MEDS: THIAMINE HCL 100 MG TAB PO SCH (08:23)
[2018-09-20] MEDS: ASPIRIN 81 MG CHEW PO SCH (09:16)
[2018-09-20] MEDS: MAGNESIUM HYDROXIDE* 30ML UDCP PO PRN (09:16)
[2018-09-20] MEDS: metFORMIN HCL XR 500 MG TABCR PO SCH ×2 (09:16→20:39)
[2018-09-20] MEDS: VANCOMYCIN(*) 1 GM VIAL 1 GM, VANCOMYCIN HCL 0.750 GM VIAL 0.75 GM in NS(*) 0.9% 250 ML... IVPB SCH ×2 (09:20→22:03)
--- NOTE | 2018-09-20 09:38 | Hospitalist Progress Note ---
Subjective Progress Notes Subjective He reports some improvement in left lower extremity pain. No fevers. Physical Exam Vital Signs Date Time Temp Pulse Resp B/P (MAP) Pulse Ox O2 Delivery O2 Flow Rate FiO2 09/20/18 07:35 99.3 75 12 121/85 (97) 94 Nasal Cannula 2.0 Intake and Output 09/20/18 07:00 Intake Total 1676 ml Output Total 300 ml Balance 1376 ml Intake Oral 956 ml IV Total 720 ml Output Emesis 300 ml # Voids 9 # Emeses 1 General Appearance: Alert, Awake Extremities: Edema (RLE wrap removed 1+ edema) Integumentary: Other (LLE wound relatively unchanged with some eschar-necrotic appearing tissue/surrounding erythema appears to be slightly less/no drainage) Psych: Alert & Oriented X3 Result Diagram: 09/18/1851009/18/18510 Assessment and Plan Problems: (1) Cellulitis Status: Acute Assessment & Plan: It appears he has some associated cellulitis with his left lower extremity wound/ulcer. Minor improvements thus far. He is currently on IV Primaxin and vancomycin. No change at this time. Continue wound care. (2) Open wound Status: Chronic Assessment & Plan: Wound care team is following. Will discuss further with PT/wound care team. (3) Hypothyroidism Status: Chronic Assessment & Plan: He is on chronic treatment with Synthroid. TSH is within normal limits (4.44). (4) Obstructive sleep apnea Status: Chronic Assessment & Plan: Will have him use the BiPAP 20/15cm H2O pressure with 3L oxygen bleed in. (5) Essential hypertension Status: Chronic Assessment & Plan: He is on chronic treatment with metoprolol, losartan, spironolactone. (6) Alcohol abuse Status: Chronic Assessment & Plan: No evidence of withdrawal. He is on vitamin/thiamine replacement. Exam Sepsis Risk: No Definite Risk JOSE BRUSH MD Sep 20, 2018 09:38
--- NOTE | 2018-09-20 10:18 | Pharmacy Note ---
Vancomycin Management Note Vanco Dosing Note Trough on 09/19 at 1900 = 16.03; keep vanco dose at 1.75 gm q12 hours.Next trough at 1900 on 09/20. ABBY PATRICIA Sep 20, 2018 10:18
[2018-09-20] MEDS: CALCIUM CARBONATE/VITAMIN D3 PO SCH ×2 (11:53→17:09)
[2018-09-20 14:03] VITALS: BP 118/80
[2018-09-20] MEDS: BISACODYL 10 MG SUPP PR PRN (16:20)
[2018-09-20 18:43] VITALS: BP 131/83
[2018-09-20 23:24] VITALS: BP 153/89
[2018-09-21] MEDS: IMIPENEM/CILASTA(*) 500MG VIAL 500 MG in NS(*) 0.9% 100 ML BAG 100 ML IVPB SCH ×4 (01:26→19:52)
[2018-09-21] MEDS: CYCLOBENZAPRINE HCL 10 MG TAB PO PRN (04:05)
[2018-09-21] MEDS ORDERED: NS(*) 0.9% 250 ML BAG 250 ML ONE ×2 (05:22→19:26)
[2018-09-21] MEDS: LEVOTHYROXINE SOD 0.075 MG TAB PO SCH (05:23)
[2018-09-21] MEDS: NS(*) 0.9% 250 ML BAG 250 ML in NS(*) 0.9% 250 ML BAG 250 ML IV PRN (05:29)
[2018-09-21 06:34] LABS: PLATELET COUNT, AUTOMATED 285 K/uL (150-450)
[2018-09-21 07:58] VITALS: BP 156/82
--- NOTE | 2018-09-21 08:10 | Hospitalist Progress Note ---
Subjective Progress Notes Subjective Feels pretty good with minimal pain in the lower legs. No fever or chills. Appetite good. No diarrhea., Physical Exam Vital Signs Date Time Temp Pulse Resp B/P (MAP) Pulse Ox O2 Delivery O2 Flow Rate FiO2 09/21/18 04:18 89 09/21/18 04:13 18 Nasal Cannula 2.0 09/21/18 00:04 30.0 09/20/18 23:24 97.8 90 153/89 (110) Intake and Output 09/21/18 07:00 Intake Total 1047.5 ml Balance 1047.5 ml Intake Oral 480 ml IV Total 567.5 ml # Voids 6 General Appearance: Alert, Awake, No Acute Distress, Afebrile Extremities: Other (Heavy eschar left lower leg wound but swelling is minimal. Right lower leg is wrapped in LUCAS and did not remove. ) Psych: Alert & Oriented X3, Appropriate Mood & Affect Result Diagram: 09/21/18 0545 09/21/18 0545 Item Value Date Time Calcium Level 10.1 mg/dl 09/21/18 0545 Total Bilirubin 0.4 mg/dl 09/21/18 0545 Alanine Aminotransferase (ALT/SGPT) 31 U/L 09/21/18 0545 Aspartate Amino Transf (AST/SGOT) 20 U/L 09/21/18 0545 Alkaline Phosphatase 66 U/L 09/21/18 0545 Total Protein 6.4 g/dl 09/21/18 0545 Albumin 3.7 g/dl 09/21/18 0545 Vancomycin Level Trough 16.03 ug/ml 09/19/181906 Vancomycin Last Dose Date 09/19/2018 09/19/181906 Vancomycin Last Dose Time 0800 09/19/181906 Assessment and Plan Problems: (1) Cellulitis Status: Acute Assessment & Plan: It appears he has some associated cellulitis with his left lower extremity wound/ulcer. The wound needs to be debrided . He is currently on IV Primaxin and vancomycin. Vanco trough yesterday was 16.0 and a trough is pending this morning. Will contact surgery tomorrow for possible debridement of the wound. Vanco will be adjusted as indicated by trough level. WBC's are stable. Creat stable. (2) Open wound Status: Chronic Assessment & Plan: Wound care team is following. Will discuss further with PT/wound care team re- debridement. (3) Hypothyroidism Status: Chronic Assessment & Plan: He is on chronic treatment with Synthroid. TSH is within normal limits (4.44). (4) Obstructive sleep apnea Status: Chronic Assessment & Plan: Will have him use the BiPAP 20/15cm H2O pressure with 3L oxygen bleed in. (5) Essential hypertension Status: Chronic Assessment & Plan: He is on chronic treatment with metoprolol, losartan, spironolactone. BP stable in hospital setting. (6) Alcohol abuse Status: Chronic Assessment & Plan: No evidence of withdrawal. He is on vitamin/thiamine replacement. Exam Sepsis Risk: No Definite Risk TREV RODRIGUEZ MD FACP Sep 21, 2018 08:10
[2018-09-21] MEDS: ASPIRIN 81 MG CHEW PO SCH (09:00)
[2018-09-21] MEDS: LOSARTAN POTASSIUM 50 MG TAB PO SCH (09:01)
[2018-09-21] MEDS: DOCUSATE SODIUM 100 MG CAP PO SCH ×2 (09:01→21:32)
[2018-09-21] MEDS: SPIRONOLACTONE 25 MG TAB PO SCH (09:01)
[2018-09-21] MEDS: FUROSEMIDE 20 MG TAB PO SCH (09:01)
[2018-09-21] MEDS: THIAMINE HCL 100 MG TAB PO SCH (09:01)
[2018-09-21] MEDS: metFORMIN HCL XR 500 MG TABCR PO SCH ×2 (09:01→21:32)
[2018-09-21] MEDS: FOLIC ACID 1 MG TAB PO SCH (09:01)
[2018-09-21] MEDS: MAGNESIUM HYDROXIDE* 30ML UDCP PO PRN (09:01)
[2018-09-21] MEDS: METOPROLOL SUCC XL 50 MG TABCR 50 MG TAB.ER.24H PO SCH (09:01)
[2018-09-21] MEDS: POLYETHYLENE GLYCOL 17 GM PKT PO SCH ×2 (09:01→21:32)
[2018-09-21] MEDS: ENOXAPARIN 40 MG/0.4ML SYR SC SCH (09:02)
[2018-09-21] MEDS: VANCOMYCIN(*) 1 GM VIAL 1 GM, VANCOMYCIN HCL 0.750 GM VIAL 0.75 GM in NS(*) 0.9% 250 ML... IVPB SCH ×2 (10:43→21:33)
[2018-09-21 11:28] VITALS: BP 126/89
[2018-09-21] MEDS: CALCIUM CARBONATE/VITAMIN D3 PO SCH ×2 (11:34→17:24)
[2018-09-21] MEDS: BISACODYL 10 MG SUPP PR PRN (12:01)
--- NOTE | 2018-09-21 15:12 | Pharmacy Note ---
Vancomycin Management Note Vanco Dosing Note VANCO TROUGH ON 09/21 AT 0900 = 15.42. Keep dose at 1.75 gm q12 hours and next trough 09/23 at 0900. ABBY PATRICIA Sep 21, 2018 15:12
[2018-09-21 16:49] VITALS: BP 118/68
[2018-09-21] MEDS: SENNOSIDES 8.6 MG TAB PO PRN (17:24)
[2018-09-21 19:01] VITALS: BP 96/65
[2018-09-21 23:33] VITALS: BP 136/73
[2018-09-22] MEDS: IMIPENEM/CILASTA(*) 500MG VIAL 500 MG in NS(*) 0.9% 100 ML BAG 100 ML IVPB SCH ×4 (01:30→19:43)
[2018-09-22 03:13] VITALS: BP 142/91
[2018-09-22] MEDS: LEVOTHYROXINE SOD 0.075 MG TAB PO SCH (06:22)
[2018-09-22] MEDS: NS(*) 0.9% 500 ML BAG 500 ML IV PRN (06:23)
[2018-09-22 07:45] VITALS: BP 122/67
[2018-09-22] MEDS: METOPROLOL SUCC XL 50 MG TABCR 50 MG TAB.ER.24H PO SCH (09:40)
[2018-09-22] MEDS: FUROSEMIDE 20 MG TAB PO SCH (09:40)
[2018-09-22] MEDS: POLYETHYLENE GLYCOL 17 GM PKT PO SCH ×2 (09:40→20:38)
[2018-09-22] MEDS: DOCUSATE SODIUM 100 MG CAP PO SCH ×2 (09:40→20:38)
[2018-09-22] MEDS: metFORMIN HCL XR 500 MG TABCR PO SCH ×2 (09:41→20:38)
[2018-09-22] MEDS: ASPIRIN 81 MG CHEW PO SCH (09:41)
[2018-09-22] MEDS: THIAMINE HCL 100 MG TAB PO SCH (09:41)
[2018-09-22] MEDS: SENNOSIDES 8.6 MG TAB PO PRN ×2 (09:41→20:38)
[2018-09-22] MEDS: LOSARTAN POTASSIUM 50 MG TAB PO SCH (09:41)
[2018-09-22] MEDS: SPIRONOLACTONE 25 MG TAB PO SCH (09:41)
[2018-09-22] MEDS: FOLIC ACID 1 MG TAB PO SCH (09:41)
[2018-09-22] MEDS: ENOXAPARIN 40 MG/0.4ML SYR SC SCH (09:42)
[2018-09-22] MEDS: MAGNESIUM HYDROXIDE* 30ML UDCP PO PRN (09:42)
[2018-09-22] MEDS: VANCOMYCIN(*) 1 GM VIAL 1 GM, VANCOMYCIN HCL 0.750 GM VIAL 0.75 GM in NS(*) 0.9% 250 ML... IVPB SCH ×2 (09:58→21:59)
--- NOTE | 2018-09-22 10:39 | Hospitalist Progress Note ---
Subjective Progress Notes Subjective He has no complaints this morning. Wound care is scheduled to see him this afternoon. He had no acute events overnight. Patient Complains of: Cardiovascular: No: Chest Pain Respiratory: No: Shortness of Breath Physical Exam Vital Signs Date Time Temp Pulse Resp B/P (MAP) Pulse Ox O2 Delivery O2 Flow Rate FiO2 09/22/18 07:45 99.0 77 18 122/67 (85) 94 Nasal Cannula 2.0 09/22/18 01:51 30.0 Intake and Output 09/22/18 06:59 Intake Total 1690 ml Balance 1690 ml Intake Oral 640 ml IV Total 1050 ml # Voids 4 # Bowel Movements 1 General Appearance: Alert, Awake, No Acute Distress, Afebrile Neuro: No Gross deficits Cardiovascular: Regular Rate and Rhythm Respiratory: No Respiratory Distress, Clear to Auscultation Psych: Alert & Oriented X3, Appropriate Mood & Affect Result Diagram: 09/21/1845 09/21/1845 Assessment and Plan Problems: (1) Cellulitis Status: Acute Assessment & Plan: It appears he has some associated cellulitis with his left lower extremity wound/ulcer. The wound needs to be debrided . He is currently on IV Primaxin and vancomycin. Vanco trough yesterday was 16.0 and a trough is pending this morning. Will contact surgery tomorrow for possible debridement of the wound. Vanco will be adjusted as indicated by trough level. WBC's are st able. Creat stable. (2) Open wound Status: Chronic Assessment & Plan: Wound care team is following. Will discuss further with PT/wound care team re- debridement. (3) Hypothyroidism Status: Chronic Assessment & Plan: He is on chronic treatment with Synthroid. TSH is within normal limits (4.44). (4) Obstructive sleep apnea Status: Chronic Assessment & Plan: Will have him use the BiPAP 20/15cm H2O pressure with 3L oxygen bleed in. (5) Essential hypertension Status: Chronic Assessment & Plan: He is on chronic treatment with metoprolol, losartan, spironolactone. BP stable in hospital setting. (6) Alcohol abuse Status: Chronic Assessment & Plan: No evidence of withdrawal. He is on vitamin/thiamine replacement. Exam Sepsis Risk: No Definite Risk CLAUDIA ORNELAS Sep 22, 2018 10:39
[2018-09-22] MEDS: CALCIUM CARBONATE/VITAMIN D3 PO SCH ×2 (11:31→17:41)
[2018-09-22 11:35] VITALS: BP 121/74
[2018-09-22 15:52] VITALS: BP 110/70
--- NOTE | 2018-09-22 17:42 | NUR ---
Physical Therapy Impression Wound appears dry and necrotic. Periwound ecchymosis noted indicating possible deep tissue injury and likely decreased perfusion to surrounding tissue. Dressing was changed over the weekend and hydrogel was not applied by staff. Conservative non-excisional debridement attempted with tweezers to yellow slough noted at posterior inferior edge of necrotic area. Minimal tissue removed to a depth of subcutaneous tissue. Wound cleansed with sterile saline and medihoney applied to attempt to soften eschar. This was then covered with silicone border 6x6 dressing and reinforced at edges with tegaderm, as lotion had been applied to lower leg, making adhesion difficult. Gentle (OTC) sub-therapeutic compression stocking applied to R) LE per pt request, as this is what he applied in the home environment. R) RICO indicates compression is appropriate for this leg. Pt encouraged to not apply compression to L) LE until further vascular studies can be completed as an out patient, as RICO on L) is 1.37 indicating a need for TBI to confirm perfusion. Telephone contact made for continuity of care with pt's out pt wound care provider at [facility] as well as message left with Pt's PCP Dr. Buenrostro, regarding RICO test results and changes in wound appearance. Physical Therapy Goals Patient's Goals
[2018-09-22 19:50] VITALS: BP 116/75
[2018-09-22] MEDS: BISACODYL 10 MG SUPP PR PRN (23:15)
[2018-09-22 23:19] VITALS: BP 145/86
[2018-09-23] MEDS: IMIPENEM/CILASTA(*) 500MG VIAL 500 MG in NS(*) 0.9% 100 ML BAG 100 ML IVPB SCH ×2 (01:33→07:06)
[2018-09-23 03:16] VITALS: BP 124/99
[2018-09-23] MEDS: LEVOTHYROXINE SOD 0.075 MG TAB PO SCH (05:25)
[2018-09-23] MEDS: NS(*) 0.9% 500 ML BAG 500 ML IV PRN (05:26)
[2018-09-23 06:47] VITALS: BP 127/68
[2018-09-23] MEDS ORDERED: MAGNESIUM CITRATE 300 ML BTL PO ONE (07:55)
[2018-09-23] MEDS: METOPROLOL SUCC XL 50 MG TABCR 50 MG TAB.ER.24H PO SCH (08:35)
[2018-09-23] MEDS: THIAMINE HCL 100 MG TAB PO SCH (08:35)
[2018-09-23] MEDS: metFORMIN HCL XR 500 MG TABCR PO SCH (08:35)
[2018-09-23] MEDS: FUROSEMIDE 20 MG TAB PO SCH (08:35)
[2018-09-23] MEDS: ENOXAPARIN 40 MG/0.4ML SYR SC SCH (08:35)
[2018-09-23] MEDS: FOLIC ACID 1 MG TAB PO SCH (08:36)
[2018-09-23] MEDS: SPIRONOLACTONE 25 MG TAB PO SCH (08:36)
[2018-09-23] MEDS: DOCUSATE SODIUM 100 MG CAP PO SCH (08:36)
[2018-09-23] MEDS: LOSARTAN POTASSIUM 50 MG TAB PO SCH (08:36)
[2018-09-23] MEDS: SENNOSIDES 8.6 MG TAB PO PRN (08:36)
[2018-09-23] MEDS: MAGNESIUM HYDROXIDE* 30ML UDCP PO PRN (08:38)
[2018-09-23] MEDS: POLYETHYLENE GLYCOL 17 GM PKT PO SCH (08:38)
[2018-09-23] MEDS: ASPIRIN 81 MG CHEW PO SCH (08:39)
--- NOTE | 2018-09-23 09:17 | Hospitalist Depart ---
Discharge Summary Reason for Hosp/Final Diag: (1) Cellulitis Status: Acute Hospital Course & Plan: He did develop cellulitis with his left lower extremity wound/ulcer. He was treated with a full course of vancomycin and Primaxin. His cultures have been negative. (2) Open wound Status: Chronic Hospital Course & Plan: He was evaluated by the wound care team. He will follow up for ongoing wound care at the orthopedic clinic. (3) Vascular insufficiency of extremity Hospital Course & Plan: He did have an abnormal ankle/brachial index on the left. He will need to follow up with vascular surgery for further evaluation. (4) Hypothyroidism Status: Chronic Hospital Course & Plan: He is on chronic treatment with Synthroid. TSH is within normal limits (4.44). (5) Obstructive sleep apnea Status: Chronic Hospital Course & Plan: He is on treatment with BiPAP. (6) Essential hypertension Status: Chronic Hospital Course & Plan: He is on chronic treatment with metoprolol, losartan, spironolactone. (7) Alcohol abuse Status: Chronic Hospital Course & Plan: No evidence of withdrawal. He is on vitamin/thiamine replacement. Departure Latest Vital Signs Vital Signs 09/22/18 09/23/18 01:51 06:47 Temp 98.9 Pulse 80 Resp 16 B/P (MAP) 127/68 (87) Pulse Ox 94 O2 Delivery Nasal Cannula O2 Flow Rate 1.0 FiO2 30.0 Weight (Pounds): 255 Result Diagram: 09/21/1854409/21/18544 Condition: Improved Discharge: Home, Self Shelter Health RN Follow Up For: Wound Care Discharge Instructions Home Meds Active Scripts Cyclobenzaprine Hcl (CYCLOBENZAPRINE HCL) 10 Mg Tablet, 10 MG PO TID for 10 Days, #30 TAB 0 Refills Prov:BENIGNO ARRIETA MD 05/07/17 Oxycodone Hcl/Acetaminophen (PERCOCET 5-325 MG TABLET) 1 Each Tablet, 1-2 EACH PO Q4-6H PRN for PAIN, #40 TAB Prov:BENIGNO ARRIETA MD 05/07/17 Spironolactone (SPIRONOLACTONE) 25 Mg Tablet, 1 TAB PO QDAY, #90 TAB 4 Refills Prov:MYNOR MARQUEZ MD 11/23/14 Losartan Potassium (LOSARTAN POTASSIUM) 50 Mg Tablet, 1 TAB PO QDAY, #90 TAB 3 Refills Prov:ALLAIS,MYNOR MD 06/08/14 Reported Medications Levothyroxine Sodium (LEVOTHYROXINE SODIUM) 75 Mcg Tablet, 75 MCG PO QDAY, TAB 09/18/18 Metoprolol Succinate (METOPROLOL SUCCINATE) 50 Mg Tab.er.24h, 1 TAB PO QDAY, TAB 10/14/15 Alprazolam (XANAX) 0.5 Mg Tablet, 1 TAB PO DAILY, TAB TAKE IN THE MORNING 09/26/15 Magnesium (MAGNESIUM) 200 Mg Tablet, 1 TAB PO QDAY 08/18/14 Glucosa Sykes 2KCL/Chondroitin Sykes (GLUCOSAMINE & CHONDROITIN CAP) 1 Each Capsule, 1 CAP PO BID, CAPSULE 08/18/14 Niacin (Inositol Niacinate) (NIACIN 500 MG CAPSULE) 500 Mg Capsule, 1 CAP PO QDAY, CAPSULE 08/18/14 Vitamin B Complex & Vit C No.4 (SUPER B COMPLEX) 150 Mg Tablet, 1 TAB PO QDAY 08/18/14 Loratadine (LORATADINE) 10 Mg Tablet, 10 MG PO DAILY PRN for ALLERGY SYMPTOMS 05/03/14 Omeprazole (OMEPRAZOLE) 20 Mg Tablet.dr, 20 MG PO QDAY TAKE ONE TABLET BY MOUTH ONCE A DAY 05/03/14 Aspirin (ASPIRIN) 81 Mg Tab.chew, 81 MG PO QDAY, TAB.CHEW TAKE 1 TABLET BY MOUTH EVERY DAY 05/03/14 Calcium Carbonate/Vitamin D3 (CALCIUM 600 + VIT D3 TABLET) 1 Each Tablet, 2 TAB PO DAILY 05/03/14 Cholecalciferol (Vitamin D3) (VITAMIN D3) 1,000 Unit Capsule, 1000 UNIT PO, CAPSULE 05/03/14 Discontinued Reported Medications Amoxicillin/Potassium Clav (AMOX TR-K CLV 875-125 MG TAB) 1 Each Tablet, BID 09/17/18 Levothyroxine Sodium (LEVOTHYROXINE SODIUM) 50 Mcg Tablet, 40 MCG PO QDAY, TAB 05/05/17 Disulfiram (DISULFIRAM) 250 Mg Tablet, 250 MG PO DAILY, #14 05/07/17 Vit A,C & E/Lutein/Minerals (OCUVITE TABLET) 1 Each Tablet, 1 TAB PO QDAY 08/18/14 Fish Oil/Dha/Epa (FISH OIL 1,200 MG FISH OIL) 1 Each Capsule, 1 CAP PO QDAY, CAPSULE 08/18/14 Flaxseed Oil (FLAX OIL) 1,000 Mg Capsule, 2 CAP PO QDAY, CAPSULE 08/18/14 Garlic (GARLIC) 1,000 Mg Capsule, 1 CAP PO QDAY, CAPSULE 08/18/14 Discontinued Scripts Morphine Sulfate (MS CONTIN) 15 Mg Tablet.er, 15 MG PO BID for 10 Days, #20 TAB Prov:BENIGNO ARRIETA MD 05/07/17 Diet: Diabetic Activity: As Tolerated Copies to: HARSHAD CABA DO ; Venous Thromboembolism Antithrombotics Is Pt On Any Antithrombotics?: Yes ALEX CHUNG DO Sep 23, 2018 09:17
[2018-09-23] MEDS: VANCOMYCIN(*) 1 GM VIAL 1 GM, VANCOMYCIN HCL 0.750 GM VIAL 0.75 GM in NS(*) 0.9% 250 ML... IVPB SCH (10:00)
--- NOTE | 2018-09-23 10:08 | Pharmacy Note ---
Vancomycin Management Note Vanco Dosing Note Vanco Trough 17.18 this am. Continue Vancomycin 1.75 IV q12h. Scr stable will recheck Trough on 09/25/18 0900. AGUSTIN MCKENNA Sep 23, 2018 10:08
== END 2018-09-23 12:40 | disposition home or self-care (01) | DRG 603 ==
LOC: ER 16:23 → MED 17:45
PROVIDERS: ADMIT Internal Medicine; ATTEND Internal Medicine
PROC: 5A09357 Assistance with Respiratory Ventilation, Less than 24 Consecutive Hours, Continuous Positive Airway Pressure (ICD-10-PCS; principal; 2018-09-17)
PROC: 0JDP3ZZ Extraction of Left Lower Leg Subcutaneous Tissue and Fascia, Percutaneous Approach (ICD-10-PCS; 2018-09-18)
PROC: 0JDP3ZZ Extraction of Left Lower Leg Subcutaneous Tissue and Fascia, Percutaneous Approach (ICD-10-PCS; 2018-09-22)
DX: L03.116 Cellulitis of left lower limb (principal); S91.002A Unspecified open wound, left ankle, initial encounter; I99.8 Other disorder of circulatory system; G47.33 Obstructive sleep apnea (adult) (pediatric); I10 Essential (primary) hypertension; E03.9 Hypothyroidism, unspecified; F10.10 Alcohol abuse, uncomplicated; Z88.2 Allergy status to sulfonamides; Z87.891 Personal history of nicotine dependence
CPT/HCPCS: 36415; 36416; 80202; 82040; 82247; 82310; 82374; 82435; 82565; 82947; 82948; 83605; 84075; 84132; 84155; 84295; 84443; 84450; 84460; 84520; 85025; 86140; 87040; 87070; 94660; 96365; 97163; 99284; J0743; J1650; J3243; J3370; J7040; J7050

== ENCOUNTER → 2018-10-07 | Outpatient (CLI) | payer MEDICARE, BC ==
[2017-05-06 08:50] VITALS: BMI 38.5
[~2018-10-07] MED LIST changes: +AMOX1TAB9; +LEVO75TA73 PO
== END ==
LOC: AMB 23:50
PROVIDERS: ATTEND Nurse Practitioner
DX: L76.22 Postprocedural hemorrhage of skin and subcutaneous tissue following other procedure (principal)
CPT/HCPCS: A0425; A0429

== ENCOUNTER 2018-10-08 00:09 | Emergency (ER) | payer MEDICARE, BC ==
[2017-05-06 08:50] VITALS: Wt 115.7 kg
--- NOTE | 2018-10-08 00:21 | ER Report ---
History and Physical Time Seen By MD: 00:11 HPI/ROS CHIEF COMPLAINT: Bleeding. A postoperative wound HISTORY OF PRESENT ILLNESS: 72-year-old male brought in by EMS from home with bleeding from a postoperative wound. Patient had debridement a large ulcer on the left lateral posterior lower mich[place] and leg. Patient has bled through the dressing that was applied. Nursing friend staying with him applied a 2nd dressing which had bled through. Patient notes some numbness in his toes. Patient takes no blood thinners except a baby aspirin. Allergies: Coded Allergies: Sulfa (Sulfonamide Antibiotics) (Verified Allergy, Unknown, 10/08/18) Home Meds Active Scripts Cyclobenzaprine Hcl (CYCLOBENZAPRINE HCL) 10 Mg Tablet, 10 MG PO TID for 10 Days, #30 TAB 0 Refills Prov:BENIGNO ARRIETA MD 05/07/17 Oxycodone Hcl/Acetaminophen (PERCOCET 5-325 MG TABLET) 1 Each Tablet, 1-2 EACH PO Q4-6H PRN for PAIN, #40 TAB Prov:BENIGNO ARRIETA MD 05/07/17 Spironolactone (SPIRONOLACTONE) 25 Mg Tablet, 1 TAB PO QDAY, #90 TAB 4 Refills Prov:MYNOR MARQUEZ MD 11/23/14 Losartan Potassium (LOSARTAN POTASSIUM) 50 Mg Tablet, 1 TAB PO QDAY, #90 TAB 3 Refills Prov:MYNOR MARQUEZ MD 06/08/14 Reported Medications Levothyroxine Sodium (LEVOTHYROXINE SODIUM) 75 Mcg Tablet, 75 MCG PO QDAY, TAB 09/18/18 Metoprolol Succinate (METOPROLOL SUCCINATE) 50 Mg Tab.er.24h, 1 TAB PO QDAY, TAB 10/14/15 Alprazolam (XANAX) 0.5 Mg Tablet, 1 TAB PO DAILY, TAB TAKE IN THE MORNING 09/26/15 Magnesium (MAGNESIUM) 200 Mg Tablet, 1 TAB PO QDAY 08/18/14 Glucosa Sykes 2KCL/Chondroitin Sykes (GLUCOSAMINE & CHONDROITIN CAP) 1 Each Capsule, 1 CAP PO BID, CAPSULE 08/18/14 Niacin (Inositol Niacinate) (NIACIN 500 MG CAPSULE) 500 Mg Capsule, 1 CAP PO QDAY, CAPSULE 08/18/14 Vitamin B Complex & Vit C No.4 (SUPER B COMPLEX) 150 Mg Tablet, 1 TAB PO QDAY 08/18/14 Loratadine (LORATADINE) 10 Mg Tablet, 10 MG PO DAILY PRN for ALLERGY SYMPTOMS 05/03/14 Omeprazole (OMEPRAZOLE) 20 Mg Tablet.dr, 20 MG PO QDAY TAKE ONE TABLET BY MOUTH ONCE A DAY 05/03/14 Aspirin (ASPIRIN) 81 Mg Tab.chew, 81 MG PO QDAY, TAB.CHEW TAKE 1 TABLET BY MOUTH EVERY DAY 05/03/14 Calcium Carbonate/Vitamin D3 (CALCIUM 600 + VIT D3 TABLET) 1 Each Tablet, 2 TAB PO DAILY 05/03/14 Cholecalciferol (Vitamin D3) (VITAMIN D3) 1,000 Unit Capsule, 1000 UNIT PO, CAPSULE 05/03/14 Past Medical/Surgical History Past medical history: Cellulitis, leg ulcer, hypothyroidism, obstructive sleep apnea, essential hypertension, history of alcohol abuse Reviewed Nurses Notes: Yes Old Medical Records Reviewed: Yes Hx Smoking: Yes (SMOKED 1/2 TO 2/3 PPD FOR 40 YEARS) Smoking Status: Former Smoker Exposure to Second Hand Smoke?: No Hx Substance Use Disorder: No Hx Alcohol Use: Yes Constitutional Vital Sign - Last 24 Hours 10/08/18 10/08/18 10/08/18 10/08/18 00:10 00:11 00:24 00:30 Temp 98.7 Pulse 99 94 Resp 16 B/P (MAP) 135/78 (97) 135/78 126/87 (100) Pulse Ox 88 98 O2 Delivery Nasal Cannula 10/08/18 10/08/18 00:39 01:00 Pulse 88 Pulse Ox 97 O2 Flow Rate 3.5 Physical Exam General appearance: Alert no distress. Vital signs stable, afebrile, pulse ox normal Respiratory: Chest is non tender, lungs are clear to auscultation. Cardiac: Regular rate and rhythm Extremities: Examination of the left lower extremity after the dressing is removed. There is a large open wound with barbra dark bleeding, the dressing appeared be wrapped quite tightly with Deion wrap causing constriction of the upper calf area. DIFFERENTIAL DIAGNOSIS: After history and physical exam differential diagnosis was considered for postoperative bleeding, Medical Decision Making ED Course/Re-evaluation ED Course Patient was admitted to an examination room. H&P was done. The differential diagnosis was considered. The wound was unwrapped. Dressings were removed. Patient appears to have significant constriction of the upper calf portion of his dressing. I do note there was postoperative swelling with the wound was wrapped too tight and the dressing. A cause constriction of the outflow causing excessive pressure and bleeding. Patient's wound was redressed with Xeroform gauze. 4 x 4's, Kerlix and a very loose Deion wrap. His bleeding was controlled. There was good capillary refill noted in the toes. There were strong pulses noted. She was observed for 30 minutes without any active bleeding through the dressing. He was discharged home and advised to follow-up with the wound care people as planned. Decision to Disposition Date: Oct 08, 2018 Decision to Disposition Time: 00:20 Depart Departure Latest Vital Signs Vital Signs Date Time Temp Pulse Resp B/P (MAP) Pulse Ox O2 Delivery O2 Flow Rate FiO2 10/08/18 01:00 3.5 10/08/18 00:39 88 97 10/08/18 00:30 126/87 (100) 10/08/18 00:11 98.7 16 Nasal Cannula Impression: Primary Impression: Bleeding from wound Additional Impressions: Open wound Vascular insufficiency of extremity Condition: Improved Disposition: HOME OR SELF-CARE Referrals: HARSHAD CABA DO (PCP) Patient Instructions: Acute Wound Care (ED) Additional Instructions: Keep her foot elevated on several pillows Follow-up with wound care as planned Problem Qualifiers DANNIE CARR DO Oct 08, 2018 00:21
[2018-10-08 00:30] VITALS: BP 126/87
== END 2018-10-08 00:56 | disposition home or self-care (01) ==
LOC: ER 00:27
DX: L76.22 Postprocedural hemorrhage of skin and subcutaneous tissue following other procedure (principal); I99.8 Other disorder of circulatory system
CPT/HCPCS: 93005; 99281

== ENCOUNTER → 2018-12-01 | Outpatient (REF) | payer MEDICARE, BC ==
[2017-05-06 08:50] VITALS: BMI 38.5
== END ==
LOC: ZZSENDIN 17:30
PROVIDERS: ATTEND Internal Medicine
DX: S81.802D Unspecified open wound, left lower leg, subsequent encounter (principal)
CPT/HCPCS: 87070; 87205

== ENCOUNTER → 2018-12-10 | Outpatient (CLI) | payer MEDICARE, BC ==
[2017-05-06 08:50] VITALS: BMI 38.5
--- NOTE | 2018-12-10 15:13 | RADIOLOGY IMAGING REPORT ---
FACILITY: [facility] PATIENT NAME: Bogdan Oconnell : 1945 MR: [id number] V: [id number] EXAM DATE: ORDERING PHYSICIAN: RAMÓN LEWIS TECHNOLOGIST: Location: [facility] Patient: Bogdan Oconnell : 1945 Visit/Account:[id number] Date of Sevice: 12/10/2018 MR TIB/FIB W/O LT COMPARISON: None. HISTORY: Distal left anterior tibial/fibular wound. MRSA, yeast, osteomyelitis. TECHNIQUE: Multiplanar MRI of the the left lower leg utilizing T1 weighted and fluid sensitive sequen franck. Vitamin E capsules placed at the proximal and distal margins of bandaging. CONTRAST: None. FINDINGS: BONES : Normal marrow signal and alignment. No evidence of osteomyelitis. FLUID: There is no effusion at the knee or the ankle. SOFT TISSUES: Extensive, circumferential and confluent subcutaneous fat edema. Mild diffuse fatty at rophy of the lower leg musculature especially the soleus muscle. Severe peroneus brevis muscle edema, moderate peroneus longus muscle edema. Difficult to differentiat e severe, confluent muscle edema from an intramuscular abscess or muscular necrosis without IV contra st. No definite intramuscular fluid identified within the limitations of a noncontrast study. Elsewhe re no appreciable soft tissue fluid collection. OTHER: Negative. IMPRESSION: 1. No evidence of left lower leg osteomyelitis. 2. Severe peroneus brevis, moderate peroneus longus muscle edema. Difficult to differentiate conflue nt muscle edema from intramuscular abscess or muscular necrosis without IV contrast but none is defin itely seen. 3. Extensive soft tissue edema throughout the lower leg. 4. Mild diffuse fatty muscle atrophy, especially the soleus muscle.. Report Dictated By: Joshua Iverson at 12/10/2018 2:51 PM Report E-Signed By: Joshua Iverson at 12/10/2018 3:08 PM WSN:[id number]
== END ==
LOC: MRI 00:29
PROVIDERS: ATTEND Internal Medicine
DX: M62.562 Muscle wasting and atrophy, not elsewhere classified, left lower leg (principal); R60.0 Localized edema

== ENCOUNTER → 2019-01-08 | Outpatient (CLI) | payer MEDICARE, BC ==
[2017-05-06 08:50] VITALS: BMI 38.5
== END ==
LOC: LAB 14:47
PROVIDERS: ATTEND Internal Medicine
DX: S81.802D Unspecified open wound, left lower leg, subsequent encounter (principal)
CPT/HCPCS: 87070; 87077; 87186; 87205

== ENCOUNTER → 2019-01-27 | Outpatient (CLI) | payer MEDICARE, BC ==
[2017-05-06 08:50] VITALS: BMI 38.5
[~2019-01-27] MED LIST changes: +GADOBENATE 529MG/1ML 15ML VIAL IVP ONE; -RANI-366 PO; +RANI-54 PO
[2019-01-27 10:33] LABS: PLATELET COUNT, AUTOMATED 255 K/uL (150-450)
--- NOTE | 2019-01-27 14:34 | RADIOLOGY IMAGING REPORT ---
[place] [facility] [place] Bogdan Oconnell : 1945 MR: [id number] V: [id number] EXAM DATE: ORDERING PHYSICIAN: HARSHAD CABA TECHNOLOGIST: Location: [facility] Patient: Bogdan Oconnell : 1945 Visit/Account:[id number] Date of Sevice: 01/27/2019 Examination: MRI left lower leg without and with contrast HISTORY: Nonhealing ulcer. Swelling. Evaluate for abscess/osteomyelitis. TECHNIQUE: Multiplanar, multisequence MRI examination is performed of the left lower leg before and a fter the administration of 15 mL IV MultiHance. COMPARISON: Noncontrast study dated 12/10/2018 was reviewed. FINDINGS: Since the previous examination, the circumferential edema within the mid and distal portion of the left lower leg demonstrates mild improvement. There is persistent skin thickening. There is a soft tissue ulcer seen along the anterolateral aspect of the lower leg. This overlies the anterior a nd lateral compartment musculature. This was seen on the prior exam and has a similar overall appeara nce. There is less pronounced muscle edema and enlargement of the peroneus brevis and peroneus longus musculature. There is less pronounced edema along the adjacent lateral margin of the anterior compar tment musculature as well as within the posterior tibialis muscle. Following the administration of gadolinium, mild enhancement involves the peripheral margins of the p eroneal musculature which is deep to the ulcer. No deep intramuscular fluid collection or abscess is identified. There is no evidence of subcutaneous abscess. The marrow pattern of the included tibia and fibula is normal. There is no evidence to suggest osteom yelitis. The marrow pattern of the included hindfoot is normal. There are suspected changes of midfoo t osteoarthritis on the edge of the [id number]. Achilles insertion is intact. IMPRESSION: 1. Soft tissue ulcer along the anterolateral aspect of the left lower leg. No evidence of deep or sup erficial soft tissue abscess. 2. Overall, there has been an improvement in the extent of circumferential subcutaneous edema within the lower leg when compared to the prior exam. There has also been an improvement in the degree of ed citlali and swelling of the lateral compartment musculature. 3. Faint enhancement along the peripheral margins of the lateral compartment musculature (peroneus lo ngus/peroneus brevis) along the site of the soft tissue ulcer. Correlate with physical exam. If the u lcer extends to the muscle, this may represent enhancing granulation tissue. Report Dictated By: Maynor Tran at 01/27/2019 2:13 PM Report E-Signed By: Maynor Tran at 01/27/2019 2:30 PM WSN:[id number]
== END ==
LOC: MRI 00:25
PROVIDERS: ATTEND Family Medicine
DX: L97.821 Non-pressure chronic ulcer of other part of left lower leg limited to breakdown of skin (principal)
CPT/HCPCS: 36415; 73720; 82565; 84520; 85025; A9577

== ENCOUNTER → 2019-02-05 | Outpatient (REF) | payer MEDICARE, BC ==
[2017-05-06 08:50] VITALS: BMI 38.5
[~2019-02-05] MED LIST changes: -GADOBENATE 529MG/1ML 15ML VIAL IVP ONE
== END ==
LOC: ZZSENDIN 19:27
PROVIDERS: ATTEND Family Medicine
DX: S81.802A Unspecified open wound, left lower leg, initial encounter (principal); B95.61 Methicillin susceptible Staphylococcus aureus infection as the cause of diseases classified elsewhere
CPT/HCPCS: 87070; 87073; 87077; 87186